=== PATIENT | female | born 1980 | race Caucasian/White ===

== ENCOUNTER → 2019-05-30 | Outpatient (CLI) | payer OTHER ==
--- NOTE | 2019-05-30 14:37 | RESP ---
DATE OF SERVICE: 05/30/2019 NAME OF STUDY: PFT. REFERRED BY: Mirlande Chew APRN. The patient's FVC was 4.15, which is 101% predicted, FEV1 of 3.26, which is 97% predicted. The FEV1/FVC ratio was normal. There were no bronchodilators given and no lung volumes performed. IMPRESSION: 1. No evidence of any obstructive airway disease. 2. Normal spirometry. 3. No bronchodilators given. JOSÉ MIGUEL NOLASCO MD DR: NOLAN/lindsey JOB#: [id number] / [id number] MIRLANDE Hernandez
--- NOTE | 2019-05-30 16:14 | RAD ---
EXAM: CHEST 2 VIEWS. HISTORY: Shortness of breath. COMPARISON: None. FINDINGS: Frontal and lateral views of the chest are obtained. The lungs are expanded to the 11th posterior ribs. There are no confluent infiltrates. There is no pneumothorax or pleural effusion. The heart is not enlarged. IMPRESSION: 1. Hyperinflation without hemidiaphragmatic flattening. Correlate to differentiate deep respiratory effort from air trapping. No confluent infiltrates. Electronically signed by: Donna Miller MD (05/30/2019 4:11 PM) [facility]
== END | disposition home or self-care (01) ==
LOC: PF 07:35
PROVIDERS: ATTEND Physician Assistant Medical
DX: R91.8 Other nonspecific abnormal finding of lung field (principal)
CPT/HCPCS: 71046; 94010